=== PATIENT | female | born 1975 | race Caucasian/White ===

== ENCOUNTER → 2025-02-19 12:33 | Outpatient (REF) | payer BC, SELFPAY | LOC: RAD 12:33 | PROVIDERS: ATTENDING PHYSICIAN Student in an Organized Health Care Education/Training Program | DX: R23.0 Cyanosis (principal); M25.561 Pain in right knee | CPT/HCPCS: 73564; 93925 ==

== ENCOUNTER → 2025-03-03 17:09 | Outpatient (REF) | payer BC, SELFPAY | LOC: WDC 17:09 | PROVIDERS: ATTENDING PHYSICIAN Student in an Organized Health Care Education/Training Program | DX: Z12.31 Encounter for screening mammogram for malignant neoplasm of breast (principal) | CPT/HCPCS: 77063; 77067 ==

== ENCOUNTER → 2025-03-12 08:29 | Outpatient (REF) | payer BC, SELFPAY | LOC: WDC 08:29 | PROVIDERS: ATTENDING PHYSICIAN Student in an Organized Health Care Education/Training Program | DX: R92.8 Other abnormal and inconclusive findings on diagnostic imaging of breast (principal) | CPT/HCPCS: 76642 ==